=== PATIENT | female | born 1945 | race Caucasian/White ===

== ENCOUNTER 2016-04-26 05:11 | Observation (INO) | payer OTHER ==
[2016-04-21 14:16] LABS: MANUAL DIFF NEEDED? NO
[2016-04-21 15:27] LABS: BASO% 0.3 % (0.0-0.8); EOS# 0.15 X1000 (0.0-0.7); EOS% 2.3 % (0.0-10.0); HEMATOCRIT 42.2 % (37.0-47.0); HEMOGLOBIN 14.5 g/dL (12.0-16.0); IMM GRAN# 0.01 X1000 (0.0-0.04); IMM GRAN% 0.2 % (0.0-0.5); LYMPH# 1.66 X1000 (1.2-3.4); LYMPH% 25.1 % (20.5-51.1); MCH 31.7 PG (27-31); MCHC 34.4 g/dL (33-37); MCV 92.1 FL (81-99); MONO# 0.69 X1000 (0.11-0.59); MONO% 10.4 % (1.7-9.3); MPV 11.3 FL (7.4-10.4); NEUT% 61.7 % (42.2-75.2); PLT 136 X1000 (130-400); RBC 4.58 XMIL (4.2-5.4)
--- NOTE | 2016-04-25 19:10 | HISTORY AND PHYSICAL ---
DATE OF SURGERY: 04/26/2016. HISTORY: The patient is a 71-year-old female who was initially followed by Dr. Mark Anthony Zamora and then subsequently by Dr. Doug Silveira, who has been having increasing problems with symptomatic pelvic organ prolapse. We discussed conservative therapy with pessary. We also discussed pamunkey tissue repair and sacrocolpopexy for treatment of her anterior and apical defect. The patient strongly wishes to proceed with robotic sacrocolpopexy. The risks and benefits were discussed at length. She understands and wishes to proceed. She has a history of prior anterior repairs as well as a Wild urethropexy and still has resultant issues, therefore, she is admitted for sacrocolpopexy and placement of mid urethral sling. The risks and benefits have been discussed at length. PAST MEDICAL HISTORY: Positive for hypothyroidism and depression. PAST SURGICAL HISTORY: Positive for Wild urethropexy, vaginal hysterectomy anterior repair. ALLERGIES: Sulfa and polypropylene glycol. CURRENT MEDICATIONS: Levothyroxine 100, Klonopin 0.5 and p.r.n. medications. SOCIAL HISTORY: Negative for tobacco or drugs. FAMILY HISTORY: Noncontributory. PHYSICAL EXAMINATION: VITAL SIGNS: BMI is noted to be 21.6. HEENT: Normocephalic, atraumatic. PERRLA. EOMI. No thyromegaly. CARDIOVASCULAR: Regular rate and rhythm without murmur, gallop, or rub. PULMONARY: Clear to auscultation and percussion. ABDOMEN: Soft. GENITOURINARY: Shows POP-Q stage 3 prolapse most of it being anterior and apical in nature. NEUROLOGIC: Afocal. EXTREMITIES: Without clubbing, cyanosis, or edema. ASSESSMENT AND PLAN: Patient is admitted at this time for Da Shyanne abdominal sacrocolpopexy and mid-urethral sling with Obtryx. The patient has also had a posterior compartment defect repair as well. The risks and benefits were explained at length. She understands and wishes to proceed. [facility]
[2016-04-26] MEDS ORDERED: KEFZOL 1 GM/D5W 50 ML ONE (05:23)
[2016-04-26] MEDS ORDERED: LR 1,000 ML ONE ×3 (05:23→09:40)
[2016-04-26] MEDS ORDERED: METROGEL-VAGINAL 0.75% GEL ONE (06:31)
[2016-04-26] MEDS ORDERED: MARCAINE 0.25% PF/EPI 1:200,000 ONE ×2 (06:31)
[2016-04-26] MEDS ORDERED: D10W 1,000 ML ONE (06:31)
[2016-04-26] MEDS ORDERED: SODIUM CHLORIDE 0.9% ONE (06:31)
[2016-04-26] MEDS ORDERED: REGLAN ONE (06:42)
[2016-04-26] MEDS ORDERED: PEPCID ONE (06:42)
[2016-04-26] MEDS ORDERED: TRANSDERM-SCOP ONE (06:42)
--- NOTE | 2016-04-26 07:39 | EKG Report ---
Test Performed on : 04/26/2016 05:32:45 AM Test Reason : per MD order Blood Pressure : / mmHG Vent. Rate : 070 BPM Atrial Rate : 070 BPM P-R Int : 154 ms QRS Dur : 076 ms QT Int : 396 ms P-R-T Axes : 041 055 053 degrees QTc Int : 427 ms Normal sinus rhythm. Normal ECG No previous ECGs available Confirmed by Luz Maria MAXWELL, Andry Whitt ([id number]) on 04/26/2016 5:21:54 PM
[2016-04-26 08:04] LABS: URINE MICRO REVIEW NEEDED? NO; URINE SOURCE CATH
[2016-04-26 08:07] LABS: BILIRUBIN URINE NEGATIVE (NEGATIVE); BLOOD URINE NEGATIVE (NEGATIVE); COLOR YELLOW; GLUCOSE URINE NEGATIVE (NEGATIVE); LEUKOCYTES URINE NEGATIVE (NEGATIVE); NITRITE URINE NEGATIVE (NEGATIVE); PH URINE 7.5; PROTEIN URINE NEGATIVE (NEGATIVE); TURBIDITY URINE CLEAR (CLEAR); UROBILINOGEN URINE NORMAL (NORMAL)
[2016-04-26 08:09] LABS: UR EPITHELIAL CELLS <10 /HPF (<10); URINE BACTERIA NEGATIVE /HPF; URINE RBC <10 /HPF (<10); URINE WBC <10 /HPF (<10)
[2016-04-26] MEDS ORDERED: FENTANYL ONE (09:36)
[2016-04-26] MEDS ORDERED: MORPHINE ONE (09:36)
[2016-04-26] MEDS ORDERED: DIPRIVAN 1% ONE (09:37)
[2016-04-26] MEDS ORDERED: XYLOCAINE-MPF 2% ONE (09:38)
[2016-04-26] MEDS ORDERED: ROBINUL ONE (09:38)
[2016-04-26] MEDS ORDERED: TORADOL ONE (09:38)
[2016-04-26] MEDS ORDERED: ZOFRAN ONE (09:38)
[2016-04-26] MEDS ORDERED: NEOSTIGMINE ONE (09:38)
[2016-04-26] MEDS ORDERED: QUELICIN (DOSE) ONE (09:38)
[2016-04-26] MEDS ORDERED: ZEMURON ONE (09:38)
[2016-04-26] MEDS ORDERED: DECADRON ONE (09:38)
[2016-04-26] MEDS: MORPHINE ONE ×4 (10:45→11:07)
--- NOTE | 2016-04-26 11:11 | OPERATIVE NOTE ---
PROCEDURE DATE: 04/26/2016 PREOPERATIVE DIAGNOSIS: Symptomatic pelvic organ prolapse. POSTOPERATIVE DIAGNOSIS: Symptomatic pelvic organ prolapse. PROCEDURE: Da Shyanne abdominal sacrocolpopexy, mid urethral sling with Obtryx. SURGEON: Bari Waller MD ANESTHESIA: General. ESTIMATED BLOOD LOSS: 40 mL. HISTORY: The patient is a 71-year-old female who has had 2 prior vaginal reconstructions as well as a Wild urethropexy, who is still struggling with persistent symptomatic pelvic organ prolapse and on evaluation, was found to have POP-Q stage III prolapse most of it being apical and anterior in nature. She is wishing to proceed towards surgical intervention. The risks and benefits have been discussed. OPERATIVE FINDINGS: Consistent with our preoperative diagnosis. Normal pelvis with normal ovaries bilaterally. Normal upper abdominal exam. Normal bladder with efflux of urine from both ureteral orifices after completion of the procedure. DESCRIPTION OF PROCEDURE: The patient was taken to the operating room, placed in supine position. After adequate general anesthesia obtained, she was [facility]. Her abdomen and vagina prepped and draped in the usual fashion. Umbilical incision was made after infiltration with 0.25% Marcaine with epinephrine. A 12 mm port and sheath was placed. Pelvic contents were visualized. Therefore, insufflation with CO2 to an intra-abdominal pressure of 14 was performed. The left-sided ports were placed in the typical positions for robotic sacrocolpopexy. These were done under direct visualization and after infiltration with 0.25% Marcaine with epinephrine. The right side ports were placed also in a similar fashion. The assistance port was noted to be in the right upper quadrant, it was a 12 mm port. All robotic ports were 7 mm ports. The patient was then placed in deep Trendelenburg position and EEA sizers were placed within the vagina and the anus, and Mccarthy catheter was placed. The robot was docked in the usual fashion. Hot scissors in the right hand, bipolar gyrus in the left, and the third arm was a Cadiere grasper. We initially did evaluation of the entire pelvis noting a normal upper abdominal exam, normal cecum, normal appendiceal bed, and other than the prolapse that we did not see internally, there was minimal to no adhesive disease also. Both fallopian tubes and ovaries were found to be within normal limits. At this time, using the EEA Sizer we elevated the vagina and were able to identify the vesicovaginal fold at the apex. We started our dissection just mm posterior to this area and easily were able to dissect the anterior compartment. We dissected approximately 10 cm anteriorly. We then turned our attention towards the posterior compartment and dissected approximately 12 cm posteriorly. Most the dissection was done sharply with minimal cauterization and we had very little bleeding in these 2 avascular spaces. At this time we turned our attention towards the sacral promontory and using our third arm to deviate the descending colon laterally we began our dissection at the sacral promontory by elevating the peritoneum, incising it, removing approximately 1-2 cm of presacral fat and identifying the anterior longitudinal ligament. We did identify the vasculature in this area and cauterized this with the bipolar gyrus at this point. At this time, we created our tunnel in the typical fashion. We changed our equipment out from the scissors and grasper to 2 needle drivers and we trimmed our mesh in the appropriate fashion. The mesh was placed intra-abdominally and we started in the anterior compartment using [place]-G[place]deep suture. All the knots were performed in the similar fashion for each site with an initial surgeon's throw and then 4 throws after that in the typical fashion. Starting anteriorly, we placed approximately 12 sutures anteriorly securing the mesh to the anterior vaginal wall. Posteriorly, in a similar fashion 12-14 sutures were placed. We brought the third arm up to the sacral promontory and used the EEA sizer to direct the vaginal apex towards the promontory and placed 2 sutures through the anterior longitudinal ligament. Excessive mesh was trimmed at the apex and we then closely inspected our prior mesh placement on the anterior area. We placed 2 sutures extra at this point, where there was some ballooning away from the mesh after removal of the Sizer. We then removed our last [place]-G[place]deep suture and placed a V-Loc suture and reperitonealized the mesh throughout. There was no evidence of any mesh exposure at this point. We dropped our pressures down. Hemostasis was observed at all sites. Our blood loss of this point was approximately 20 mL. At this time, copious amounts of irrigation was performed. We again closely inspected all pedicles and marked hemostasis was observed. So, decision was made to terminate this portion of procedure. All equipment was removed. However, the ports were left in. Robot was undocked and we used a Hemant-Jayy closure system to close both the umbilical and the right upper quadrant port with 0 Vicryl ligature. At this time, all of our trocars and sheaths were easily removed under direct visualization. There was no evidence of any bleeding. The abdomen was deflated of CO2 prior to doing this. Nursing services closed all skin incisions with 4.0 Vicryl ligature in a subcuticular fashion. Vaginally, we had excellent anterior and apical support. There was no evidence of any mesh or suture material present in the vagina. The Mccarthy catheter was removed and the urethra was grasped proximally and distally. We injected approximately 8 mL of 0.25% Marcaine in a periurethral fashion. We made a sagittal incision dissecting the vaginal mucosa away from the mid urethral section and going with our dissection towards the ischial pubic ramus on each side. Based on the bony landmarks of the ramus as well as the insertion of the adductor longus, a stab incision was initially made on the left-hand side. A halo device was introduced into the lap winding machine operator's finger through this space and the finger directed out of our prior sagittal urethral incision. The mesh was attached to it, it was retracted back through the skin. This was performed on the contralateral side in a similar fashion. At this time, cystoscope was introduced. The bladder was filled to 250 mL. There was penetration of the bladder at all with suture material or mesh. There was no evidence of any injury to the bladder. Both ureteral orifices were found to be easily effluxing urine and so the cystoscope was removed and a Ximena clamp was placed in the mid urethral position. The tape was brought out the Ximena clamp, the blue tag was excised. The sheaths were easily removed. There was no tension on the mesh whatsoever. Mid urethral incision was closed with running 2.0 Vicryl ligature. Sponge count, instrument count, and count needle counts correct x3. Mesh was trimmed at the skin near the obturator canals on each side. Mccarthy catheters were placed. The patient was awakened taken to recovery room with vital signs stable.
[2016-04-26] MEDS ORDERED: DEMEROL IM PRN (11:33)
[2016-04-26] MEDS ORDERED: NORCO-5 PO PRN (11:33)
[2016-04-26] MEDS ORDERED: PHENERGAN IM PRN (11:33)
[2016-04-26] MEDS ORDERED: COLACE PO SCH (11:33)
[2016-04-26] MEDS ORDERED: PATIENT'S OWN MED INH SCH (11:33)
[2016-04-26] MEDS ORDERED: ZOFRAN ODT PO PRN (11:33)
[2016-04-26] MEDS ORDERED: PATIENT'S OWN MED INH PRN (11:33)
[2016-04-26] MEDS: LR 1,000 ML IV SCH ×2 (11:35→23:03)
[2016-04-26] MEDS: COLACE PO SCH (16:22)
[2016-04-26] MEDS: MIRALAX PO SCH (16:24)
[2016-04-26] MEDS: TORADOL IV SCH ×3 (16:24→23:48)
--- NOTE | 2016-04-26 18:27 | PROGRESS NOTE ---
DATE: 04/26/2016 SUBJECTIVE: Patient is alert and oriented x3. She is sitting in the bed with her sitting beside her. OBJECTIVE: Afebrile. Vital signs stable. Urine output is adequate and clear. Dressings are dry and intact. ASSESSMENT AND PLAN: Routine postoperative care. We will plan on voiding trial in a.m. and plan on discharge in a.m. We reviewed our postoperative routine and the need to call me if any problems. We will already plan on getting her prescriptions written for her voiding trial tomorrow.
[2016-04-26] MEDS ORDERED: ZOLOFT PO SCH (21:00)
[2016-04-26] MEDS ORDERED: SYNTHROID PO SCH (21:00)
[2016-04-26] MEDS ORDERED: ZOCOR PO SCH (21:00)
[2016-04-26] MEDS ORDERED: KLONOPIN PO SCH (21:00)
[2016-04-26] MEDS: PERIDEX MT SCH (23:03)
[2016-04-27] MEDS: COLACE PO SCH ×2 (05:17→09:25)
[2016-04-27] MEDS: PERIDEX MT SCH ×2 (05:18→09:24)
[2016-04-27] MEDS: TORADOL IV SCH (06:39)
--- NOTE | 2016-04-27 07:26 | DISCHARGE SUMMARY ---
ADMISSION DATE: 04/26/2016 DISCHARGE DATE: 04/27/2016 PRINCIPAL DIAGNOSIS: Symptomatic pelvic organ prolapse. PROCEDURE: Robotic abdominal sacrocolpopexy, mid urethral sling with Obtryx. HISTORY: The patient is a 71-year-old female who had been having increasing problems with symptomatic pelvic organ prolapse who had undergone 2 prior vaginal reconstructions and refused pessary management. HOSPITAL COURSE: The patient underwent the above-stated procedure. Blood loss at that time was approximately 20 mL. Her postoperative course has been uncomplicated. She is currently undergoing voiding trial and will be discharged home with instructions for followup in 3 weeks. DISCHARGE MEDICATIONS: [place] 5. The patient is currently already on Colace and, because of her age, I did not want to give her any NSAIDs. DISCHARGE INSTRUCTIONS: The patient was instructed in regular diet and decreased activity.
[2016-04-27 08:29] VITALS: BP 111/57
[2016-04-27] MEDS: LR 1,000 ML IV SCH (09:24)
[2016-04-27] MEDS: MIRALAX PO SCH (09:24)
== END 2016-04-27 12:31 | disposition home or self-care (01) ==
LOC: OPS 05:11 → 4N 10:23
PROVIDERS: ADMIT Obstetrics & Gynecology; ATTEND Obstetrics & Gynecology
DX: N99.3 Prolapse of vaginal vault after hysterectomy (principal); N39.3 Stress incontinence (female) (male); E03.9 Hypothyroidism, unspecified; E78.00 Pure hypercholesterolemia, unspecified; J44.9 Chronic obstructive pulmonary disease, unspecified; F32.9 Major depressive disorder, single episode, unspecified; F41.9 Anxiety disorder, unspecified; Z79.899 Other long term (current) drug therapy; Z79.82 Long term (current) use of aspirin
CPT/HCPCS: 36415; 81001; 85025; 93005; 93010; 94761; 94799; C1771; C1781; J0330; J0690; J1100; J1885; J2270; J2405; J3010; J7120; J2710; S0020